=== PATIENT | female | born 1955 | race Caucasian/White ===

== ENCOUNTER → 2017-08-19 | Day surgery (SDC) | payer OTHER ==
[~2017-08-19] MED LIST: APREPITANT 40 MG CAP ONE; ASPI81TA82 PO; BUPIVACAINE HCL PF 0.25% 30 ML VIAL ONE; CALCTAB32 OR; FISH1000 PO; KETOROLAC TROMETHAMINE 30 MG/ML (IVP) VIAL IV PUSH ONE; LACTATED RINGER'S 1000 ML INJ 1,000 ML ONE; MIDAZOLAM HCL 2 MG/2 ML VIAL ONE; ONDANSETRON HCL 4 MG/2 ML VIAL IV PUSH ONE; PROPOFOL 200 MG/20 ML AMP IV ONE; TRAM50TA PO; TRIAMCINOLONE ACETONIDE 40 MG/ML VIAL ONE; [UNRECOGNIZED DRUG - CODE] OR; [UNRECOGNIZED DRUG - CODE] PO; ceFAZolin 2 GM PREMIX 50 ML ONE
--- NOTE | 2017-08-19 21:28 | MP ---
cc: REJI LEW. DPM DATE OF SURGERY 08/19/17 PREOPERATIVE DIAGNOSIS Left hallux abductovalgus with painful bunion, hammertoes two and three, metatarsalgia with second interspace neuroma. POSTOPERATIVE DIAGNOSIS Left hallux abductovalgus with painful bunion, hammertoes two and three, metatarsalgia with second interspace neuroma. PROCEDURES PERFORMED 1. First metatarsal osteotomy 2. PIPJ arthroplasty second digit. 3. PIPJ arthroplasty third digit. 4. Metatarsal osteotomy second metatarsal. 5. Metatarsal osteotomy fourth metatarsal 6. Second interspace neurectomy. SPECIMEN Nerve mass second interspace. ESTIMATED BLOOD LOSS Less than 30 mL INJECTABLES 30 mL of 0.25% Marcaine plain COMPLICATIONS None ANESTHESIA General. TOURNIQUET TIME 78 minutes. This was Esmarch around the patient's ankle. PLAN OF ACTIVITY PACU then DC home once stable per same-day surgery criteria JUSTIFICATION FOR PROCEDURE A 61-year-old female with worsening forefoot pain and deformity. We devised a plan to move forward with surgical intervention after failing conservative treatment. The patient understood stiffness, permanent numbness, possible need for removal of hardware at a later date is all possible. No guarantees given or implied regarding the outcome. PROCEDURE IN DETAIL Under mild sedation, the patient was brought into the operating room, placed on the operating table in the supine position. Following the induction of general anesthesia, local anesthesia was attained about the patient's left forefoot utilizing standard block fashion. The left foot was then scrubbed, prepped and draped in the usual aseptic fashion. The foot was elevated, exsanguinated and the previously placed ankle tourniquet was inflated. There was noted to be a faulty tourniquet. The Esmarch then was reapplied and wrapped around the ankle for 78 minutes. An incision was made over the dorsal aspect of the first MPJ. This was medial to the extensor hallucis longus tendon. Sharp and blunt dissection was carried down to the joint capsule. Sharp and blunt dissection was then carried down to the level of the first interspace in which the level of the conjoined tendon and fibular suspensory ligament was then severed. An L-shaped capsulotomy was performed revealing a prominent dorsomedial eminence with relatively minimal arthritic findings of the first MPJ. The dorsomedial eminence was then resected utilizing power instrumentation being careful not to stake the metatarsal or violate the sagittal groove. A McGlamry elevator was then introduced deep into the first metatarsal freeing up all plantar lateral contractures. Next, an offset V osteotomy was performed utilizing power instrumentation with a longer dorsal arm. The capital fragment was then transposed laterally 4 mm and then fixated utilizing x2 [employer] cannulated screws. There was noted to be compression across the osteotomy site. Prominent redundant dorsal shelf was then transected. There was good range of motion of the digit and minimal hallux abductovalgus. The wound was then closed. After copious amounts of normal saline lavaged the area, periosteum and capsular layer was closed utilizing Vicryl. subcuticular closure took place utilizing Monocryl. Skin was closed utilizing nylon. Next focus was the second and third digit. An incision was made over the second digit PIPJ which curved into the level of the second interspace. Sharp and blunt dissection was carried down through the dorsal neurovascular structure being careful not to violate them utilizing loupe dissection. Sharp and blunt dissection was carried down to the level of the transverse intermetatarsal ligament which was then severed revealing a flat widened diseased appearing nerve. There was no obvious signs of soft tissue mass or infiltrated mass. The most proximal aspect of the nerve was dissected into the level of the interossei and then at its bifurcation to the level of the plantar second and third digit. The neuroma/mass was then retracted as far distal as possible, injected with 0.5 mL of Kenalog 40 and then severed allowing for retraction into the level of the interossei musculature. The nerve was then passed off for soft tissue pathological analysis. Next, the sling wing apparatus of the second digit was then transected. A Z tendon lengthening approach took place allowing for exposure to the level of the second MPJ. A linear capsulotomy was performed, McGlamry elevator introduced into the second MPJ freeing up plantar, lateral and medial contractures. Next, a dorsal distal to plantar proximal osteotomy was performed and the metatarsal head was transposed proximally 3 mm and fixated utilizing x1 cannulated titanium [employer] screw. The prominent dorsal shelf was then transected allowing range of motion. Next, sharp and blunt dissection was carried down to the level of the PIPJ. The head of the proximal phalanx was resected just beyond the level of the cartilage. The base of the middle phalanx cartilage was then resected preparing for arthrodesis. A wire was then placed through the middle phalanx and the distal phalanx retrograded back across the proximal phalanx stopping just short of the second MPJ. The extensor tendon was then repaired under loose physiologic tension. Monocryl was used to close deep dermis. Skin was closed utilizing nylon. Next, an incision was made over the dorsal aspect of the third digit at the level of the PIPJ which was slight curvilinear more lateral at the level of the third MPJ. Sharp and blunt dissection was carried down to the tendon, sling wing apparatus was transected. A Z tendon lengthening approach took place allowing for access at the level of third MPJ. A linear capsulotomy was performed and McGlamry elevator introduced deep into the third MPJ. A dorsal distal to plantar proximal osteotomy of the third metatarsal head took place. The capital fragment was transposed proximally 3 mm fixated utilizing x1 [employer] cannulated titanium screw 2.0. The prominent dorsal shelf was then transected allowing for range of motion. Next, sharp and blunt dissection was carried down to level of the PIPJ. The head of the proximal phalanx was then transected just beyond the cartilaginous surface. The base of the middle phalanx was then transected preparing for arthrodesis. A wire was then placed through the middle phalanx of the distal phalanx and retrograded back across the proximal phalanx stopping just short of the third MPJ. The tendon was then coapted under loose physiologic tension utilizing Vicryl. Deep dermis subcu was closed utilizing Monocryl. Skin was closed utilizing nylon. X-rays were utilized during the procedure verifying correction and placement of hardware. Upon relieving the tourniquet Esmarch, there was noted to be a prompt hyperemic response to all digits without any delayed capillary fill time. A bulky bandage placed. The patient transferred from OR to PACU with all vital signs stable. She is heel weightbear. She will ice, elevate. I will see the patient within 3-5 days. MIRELLA Smith /3:05 PM /9:05 PM
== END | disposition home or self-care (01) ==
LOC: ESDC 10:52
PROVIDERS: ATTEND Podiatrist Foot & Ankle Surgery
DX: M20.12 Hallux valgus (acquired), left foot (principal); M21.612 Bunion of left foot; M20.42 Other hammer toe(s) (acquired), left foot; G57.62 Lesion of plantar nerve, left lower limb
CPT/HCPCS: 01470; 01480; 28080; 28285; 28296; 28308; 73620; 76000; 88304; C1713; J0690; J1885; J2250; J2405; J3010; J3301; J7120; J8501